=== PATIENT | female | born 1965 | race Caucasian/White ===

== ENCOUNTER 2016-03-14 12:04 | Observation (INO) ==
[2016-03-14] MEDS ORDERED: *HR* Enoxaparin 100 MG/ML SYRINGE SQ STA (13:29)
--- NOTE | 2016-03-14 13:33 | Emergency Department Note ---
Disposition Clinical Impression: DVT (deep venous thrombosis) Qualifiers: DVT location: lower extremity Affected thrombotic vein of extremity: popliteal Laterality: right Chronicity: acute Qualified Code(s): I82.431 - Acute embolism and thrombosis of right popliteal vein Gout Qualifiers: Gout site: ankle Gout etiology: idiopathic Laterality: right Chronicity: acute Qualified Code(s): M10.071 - Idiopathic gout, right ankle and foot Disposition: Admitted As Inpatient Time of Disposition: 13:25 General Adult HPI - General Chief complaint: ED Extremity Problem,Nontraumatic Stated complaint: positive blood clot behind right knee Time Seen by Provider: 03/14/16 13:10 Source: patient Mode of arrival: private vehicle Limitations: no limitations Nursing Notes Reviewed: Yes Vital Signs Reviewed: Yes - History of Present Illness HPI Narrative: This 50-year-old female who presents with several days of right ankle pain. Hurts very much to move ankle. She says she has had episode old was diagnosed as gout about a year ago. She simply simply treated the symptoms and waited for her to get better since she cannot take nonsteroidals or prednisone. She was seen her yesterday and found elevated have an elevated d-dimer and a Doppler today shows a right popliteal vein thrombus which is felt to be acute. Location the problem is the right ankle pain along with the probably unrelated right popliteal DVT. Duration: The ankle pain is been on for about 3 days. Timing: [place] prior history of low was felt to be gout about a year ago Severity: The pain and ankles quite significant significantly hampering her ability to get around Call the colon is sharp pain Associated signs and symptoms: The patient denies any lightheadedness, chest pain, shortness of breath, calf pain. Context: She does not have cancer. She has not had recent surgery. She never had a blood clot. She is not on hormone replacement. Modifying factors: Move his ankle makes it worse. Pain Scale: 10 - Related Data Home Medications Medication Instructions Recorded Confirmed Alprazolam [Xanax] 0.5 mg PO Q6HR PRN 10/04/14 03/14/16 Famotidine [Pepcid] 20 mg PO BID PRN 10/04/14 03/14/16 Hydrochlorothiazide 25 mg PO DAILY 10/04/14 03/14/16 Hydrocodone/Acetaminophen [[place] 1 each PO Q6HR PRN 10/04/14 03/14/16 5-325 Tablet] Metoprolol [Lopressor] 100 mg PO BID 10/04/14 03/14/16 Levothyroxine [Synthroid] 112 mcg PO DAILY 03/14/16 03/14/16 Previous Rx's Medication Instructions Recorded Colchicine [Colcrys] 1.2 mg PO NOW #10 tablet 10/04/14 Allergies Allergy/AdvReac Type Severity Reaction Status Date / Time aspirin Allergy Swelling Verified 10/04/14 18:33 of Lip/Tongue/Throat ibuprofen Allergy Swelling Verified 10/04/14 18:33 of Lip/Tongue/Throat NSAIDS (Non-Steroidal Allergy Rash Verified 10/04/14 18:33 Anti-Inflamma prednisone Allergy Swelling Verified 10/04/14 18:33 of Lip/Tongue/Throat Sulfa (Sulfonamide Allergy Hives Verified 03/14/16 12:06 Antibiotics) ketorolac [From Toradol] AdvReac Nausea Verified 10/04/14 18:33 tramadol [From Ultram] AdvReac Nausea Verified 10/04/14 18:33 Constitutional: Denies: fever Eyes: Denies: vision change ENT ED: Denies: throat pain, congestion Cardiovascular: Denies: chest pain, syncope Respiratory: Denies: dyspnea Gastrointestinal: Reports: abdominal pain (She has some ongoing issues with right-sided abdominal pain which are not new) Genitourinary: Denies: dysuria Musculoskeletal: Reports: other (She has pain in the right ankle but not in the right calf. There is no swelling in the right calf). Denies: back pain Integumentary: Denies: rash Neurological: Denies: numbness Psychiatric: Denies: depression Past Medical History - Past Medical History Source: patient Medical history: Reports: arthritis, asthma, CHF, COPD, diabetes, fibromyalgia, hypertension, thyroid disease, other Surgical history: Reports: Psychiatric history: Reports: anxiety [employer] history: Reports: bilateral tubal ligation, other - Social History Smoking Status: Former smoker Smokeless Tobacco Status: No Alcohol use: Reports: none Drug use: Reports: none Physical Exam - General Limitations: no limitations General appearance: alert - Head Head exam: atraumatic, normocephalic - Eye Eye exam: Absent: conjunctival injection - ENT ENT exam: normal oropharynx - Neck Neck exam: Absent: tenderness, meningismus - Chest Chest inspection: Present: normal inspection - Respiratory Respiratory exam: Present: normal lung sounds bilaterally - Cardiovascular Cardiovascular exam: Present: regular rate, normal rhythm, normal heart sounds - Abdominal Exam Abdominal exam: Present: tenderness (Mild right-sided abdominal tenderness) - Extremities Exam Extremities exam: Present: other (She has quite significant tenderness of the right ankle without erythema or obvious swelling and no warmth. She has absolutely no tenderness over the right calf or thigh area. She has significant pain with any range of motion of the right ankle.) - Back Exam Back exam: Absent: CVA tenderness (R), CVA tenderness (L) - Neurological Exam Neurological exam: Present: oriented X3. Absent: motor sensory deficit - Skin Skin exam: Absent: rash, erythema Course - Reevaluation(s) Reevaluation #1: I did review her chart from yesterday. She does have uric acid of 8 within normal range of 2.66. White count was 5.6. Chemistries are normal. TSH was mildly elevated at 8.17. D-dimer was elevated at 724. The venous Doppler done today is read as showing an acute occlusive thrombus in the right popliteal area. Time: 13:35 Reevaluation #2: Earlier I did discuss the patient with Dr. Rhodes did agree to admit the patient is a hospital here Time: 14:06 Vital Signs Temperature 98.7 F 03/14/16 12:08 Pulse Rate 64 03/14/16 12:08 Respiratory Rate 18 03/14/16 12:08 Blood Pressure 129/57 03/14/16 12:08 O2 Sat by Pulse Oximetry 95 03/14/16 12:08 Temperature 98.7 F 03/14/16 12:10 Pulse Rate 64 03/14/16 13:33 Respiratory Rate 18 03/14/16 13:33 Blood Pressure 130/79 03/14/16 13:33 O2 Sat by Pulse Oximetry 93 L 03/14/16 13:33 Oxygen Delivery Oxygen Delivery Room Air Medical Decision Making - [facility] Narrative Medical decision making narrative: This is a patient with her and basically asymptomatic DVT in her right lower extremity. The pain in her right ankle which is probably unrelated to the DVT is making it difficult for her to be adequately treated at home. She will be admitted for treatment for the DVT. Depending on what happens with her ankle pain she may become a placement issue - Medical Records Medical records reviewed: Yes I reviewed the patient's medical records. See the history of present illness - Core Measures AMI Core Measures Followed: No Measure Exclusions: not indicated Critical Care Time Critical Care Time: No
[2016-03-14] MEDS ORDERED: Naloxone 0.4 MG/ML INJ IVP PRN (14:11)
[2016-03-14] MEDS ORDERED: *HR* OxyCODONE Immed Rel 5 MG TABLET PO PRN (14:11)
[2016-03-14] MEDS ORDERED: Famotidine 20 MG TABLET PO PRN (14:16)
[2016-03-14] MEDS: *HR* HYDROcodone/Acet 5/325 mg TABLET PO PRN ×2 (16:04→20:12)
--- NOTE | 2016-03-14 17:11 | Internal Med History&Physical ---
Date of Encounter: 03/14/16 Time of Encounter: 16:35 Assessment and Plan (1) DVT (deep venous thrombosis) Current visit: Yes Status: Acute I will start her on Xarelto 15 mg twice a day. Qualifiers: DVT location: lower extremity Affected thrombotic vein of extremity: popliteal Laterality: right Chronicity: acute Qualified Code(s): I82.431 - Acute embolism and thrombosis of right popliteal vein (2) Gout Current visit: Yes Status: Acute I will order prednisone since she has taken it several times in the past without allergic reaction. I will give her colchicine and start IV fluids and withhold HCTZ. Qualifiers: Gout site: ankle Gout etiology: idiopathic Laterality: right Chronicity : acute Qualified Code(s): M10.071 - Idiopathic gout, right ankle and foot (3) Hypertension Current visit: Yes Status: Chronic Will hold HCTZ but continue metoprolol. Will monitor blood pressure and prescribe additional medication as needed. Qualifiers: Hypertension type: essential hypertension Qualified Code(s): I10 - Essential (primary) hypertension (4) Hypothyroidism Current visit: Yes Status: Chronic We will check TSH in a.m. Qualifiers: Hypothyroidism type: unspecified Qualified Code(s): E03.9 - Hypothyroidism , unspecified Internal Medicine - H&P: HPI Chief complaint: Right leg pain Admitted From: Home Plans for Post Hospital Care: Home History of present illness: Ms. Jackson is a 50 year old female who came to emergency room the evening of March 13 complaining of right ankle pain onset 2 days previously. Workup showed elevated uric acid at 8.0 and elevated d-dimer at 724. She was offered but declined specific treatment for the elevated d-dimer but agreed to return to the hospital today for a venous Doppler study. She was found to have acute right popliteal vein DVT on the ultrasound today. She was admitted to [facility] for ongoing care needs. She states when the pain developed on March 11 in her right ankle she further decreased her already minimal mobility. She denies previous DVT or pulmonary embolus. She did have a single previous episode of gout approximately 9-12 months ago in her right first toe MTP joint but does not recall the specific treatment given. She was not placed on any maintenance therapy for gout. She states she has taken prednisone several times in the past for asthma without any adverse drug reaction but thinks she had an allergic reaction following a steroid injection in her knee several months ago. 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 She also has fibromyalgia. Past Med Surg Social Fam HX - Past Medical History Medical history: arthritis, asthma, CHF, COPD, diabetes, fibromyalgia, hypertension, thyroid disease, other Psychiatric history: anxiety - Past Surgical History Surgical History: - Social History Smoking Status: Former smoker Smokeless Tobacco Status: No Alcohol use: none Drug use: none - Family History Mother History Unknown: Yes Adopted: No Family Member Ethnicity: Non- Living Status: Still Living Hx Family Cardiac Disorders: Yes Hx Family Respiratory Disorders: Yes Hx Family Cancer: Yes (breast uterine) Hx Family GI Disorders: No Hx Family Genitourinary Disorders: No Hx Family Endocrine Disorder: Yes (DM) Hx Family Musculoskeletal Disorders: No Hx Family Neuromuscular Disorders: No Hx Family Neurologic Disorders: No Hx Family HEENT Disorders: No Hx Family Autoimmune Disorders: No Hx Family Reproductive Disorders: No Hx Family Psychosocial Disorders: No Hx Family Medical Disorders: No Internal Medicine - H&P: Meds Alprazolam [Xanax] 0.5 mg PO Q6HR PRN 10/04/14 [History] Colchicine [Colcrys] 1.2 mg PO NOW #10 tablet 10/04/14 [Rx] Famotidine [Pepcid] 20 mg PO BID PRN 10/04/14 [History] Hydrochlorothiazide 25 mg PO DAILY 10/04/14 [History] Hydrocodone/Acetaminophen [[place] 5-325 Tablet] 1 each PO Q6HR PRN 10/04/14 [ History] Metoprolol [Lopressor] 100 mg PO BID 10/04/14 [History] Levothyroxine [Synthroid] 112 mcg PO DAILY 03/14/16 [History] Allergies aspirin Allergy (Verified 10/04/14 18:33) Swelling of Lip/Tongue/Throat ibuprofen Allergy (Verified 10/04/14 18:33) Swelling of Lip/Tongue/Throat NSAIDS (Non-Steroidal Anti-Inflamma Allergy (Verified 10/04/14 18:33) Rash prednisone Allergy (Verified 10/04/14 18:33) Swelling of Lip/Tongue/Throat Sulfa (Sulfonamide Antibiotics) Allergy (Verified 03/14/16 12:06) Hives ketorolac [From Toradol] Adverse Reaction (Verified 10/04/14 18:33) Nausea tramadol [From Ultram] Adverse Reaction (Verified 10/04/14 18:33) Nausea All Systems PM: A 10-system review of systems was performed and is negative for pertinent findings except as documented above in the HPI. Review of systems: Gen.: She states her weight has been stable the past few months Cardiovascular: She has history of hypertension but denies [place] heart failure angina or previous DVT or pulmonary embolus Respiratory: She smoked from age [age] a total of 17 years never up to 1 pack per day. She has a diagnosis of asthma but denies other chronic lung disease. GI: She has a dysfunctional gallbladder but has not had cholecystectomy. She denies disorders of her liver or exocrine pancreas : She denies hematuria dysuria or kidney stones Neurologic: She denies large distribution strokes or seizures Endocrine: She has hypothyroidism but denies diabetes or hyperlipidemia Hematology/oncology: She denies blood disorders cancers or anemia Psychiatric: She has anxiety but denies depression or other mental health issues Musculoskeletal: As per history of present illness - Constitutional Vitals: Temp Pulse Resp BP Pulse Ox 97.7 F 71 18 127/62 96 03/14/16 14:36 03/14/16 14:36 03/14/16 14:36 03/14/16 14:36 03/14/16 14:36 Exam: Gen.: She is well-developed morbidly obese female lying in bed who appears in minimal distress until movement of the right ankle occurs HEENT: Head is atraumatic and normocephalic. Eyes: EOMI. There is no scleral icterus. Mouth: Mucosa is moist. Neck: Supple and nontender. There is no thyromegaly or adenopathy noted. Heart: Regular without murmurs gallops or ectopics. Lungs: No wheezes or crackles are heard. Abdomen: Soft and nontender. No masses or guarding are noted. Extremities: There is no cyanosis edema or clubbing noted. Dorsalis pedis and posterior tibial pulses are 1-2 over 2 bilaterally. She has significant pain on passive or active range of motion of the right ankle. There is no significant difference in warmth or appearance between the left and right ankle. She has no pain on movement of the right MTP joints Neurologic: Mental status: She is talkative and a good historian. Cranial nerves: Smile is symmetric. Forehead wrinkles bilaterally. Tongue protrudes midline. EOMI. Motor: There is no pronator drift. Cerebellar: Finger to nose is intact bilaterally. Skin: Warm and dry
[2016-03-14] MEDS ORDERED: Colchicine 0.6 MG TABLET PO ONE (17:30)
[2016-03-14] MEDS ORDERED: 0.45 % Sodium Chloride w/KCl 20 MEQ/1,000 ML MLS IVC SCH (17:30)
[2016-03-14] MEDS: PredniSONE 20 MG TABLET PO SCH ×3 (18:07→20:13)
[2016-03-14] MEDS: *HR* Rivaroxaban 15 MG TABLET PO SCH (20:12)
[2016-03-15] MEDS: *HR* HYDROcodone/Acet 5/325 mg TABLET PO PRN ×6 (00:20→21:31)
[2016-03-15] MEDS: *HR* Rivaroxaban 15 MG TABLET PO SCH ×2 (09:38→21:31)
[2016-03-15] MEDS: PredniSONE 20 MG TABLET PO SCH (09:40)
--- NOTE | 2016-03-15 10:38 | Internal Med Progress Note ---
Date of Encounter: 03/15/16 Time of Encounter: 10:30 - Assessment and plan (1) DVT (deep venous thrombosis) Current Visit: Yes Status: Acute Assessment and plan: March 15. Continue Xarelto Qualifiers: DVT location: lower extremity Affected thrombotic vein of extremity: popliteal Laterality: right Chronicity: acute Qualified Code(s): I82.431 - Acute embolism and thrombosis of right popliteal vein (2) Gout Current Visit: Yes Status: Acute Assessment and plan: March 15. I will give additional colchicine and start allopurinol. Qualifiers: Gout site: ankle Gout etiology: idiopathic Laterality: right Chronicity : acute Qualified Code(s): M10.071 - Idiopathic gout, right ankle and foot (3) Hypertension Current Visit: Yes Status: Chronic Assessment and plan: March 15. Remain off HCTZ but continue metoprolol. Her blood pressures are well controlled. Qualifiers: Hypertension type: essential hypertension Qualified Code(s): I10 - Essential (primary) hypertension (4) Hypothyroidism Current Visit: Yes Status: Chronic Assessment and plan: March 15. TSH was normal at 4.809. Continue present dose Synthroid Qualifiers: Hypothyroidism type: unspecified Qualified Code(s): E03.9 - Hypothyroidism , unspecified - Subjective Interval history: March 15. She has no new complaints. She states the pain in her right foot has decreased slightly. She refused to take prednisone after her sister reminded her she had an "allergic" reaction to previous doses of it. Multiple attempts to gain IV access were unsuccessful and she declined further attempts. She is drinking more fluids orally. - Constitutional Vitals: Temp Pulse Resp BP Pulse Ox 97.4 F L 66 18 129/68 94 L 03/15/16 07:16 03/15/16 07:16 03/15/16 07:16 03/15/16 07:16 03/15/16 07:16 Exam: The right foot shows no significant erythema. She has pain still present on right ankle movement but slightly decreased from yesterday's evaluation. She has no pain on movement of her right toes. I reviewed her medications and lab results. Consult Discharge Plan - Plan Referrals: Colette Davidson [Primary Care Provider] - 1 week
[2016-03-15] MEDS: Colchicine 0.6 MG TABLET PO SCH ×2 (12:44→21:31)
[2016-03-16] MEDS: *HR* HYDROcodone/Acet 5/325 mg TABLET PO PRN ×4 (01:40→13:47)
[2016-03-16 06:32] VITALS: BP 113/62
--- NOTE | 2016-03-16 09:31 | Discharge Summary ---
Date of Encounter: 03/16/16 Time of Encounter: 09:15 - Discharge Diagnosis (1) DVT (deep venous thrombosis) Priority: Primary Status: Acute Qualifiers: DVT location: lower extremity Affected thrombotic vein of extremity: popliteal Laterality: right Chronicity: acute Qualified Code(s): I82.431 - Acute embolism and thrombosis of right popliteal vein (2) Gout Priority: Secondary Status: Chronic Qualifiers: Gout site: ankle Gout etiology: idiopathic Laterality: right Chronicity : acute Qualified Code(s): M10.071 - Idiopathic gout, right ankle and foot (3) Hypertension Priority: Secondary Status: Chronic Qualifiers: Hypertension type: essential hypertension Qualified Code(s): I10 - Essential (primary) hypertension (4) Hypothyroidism Priority: Secondary Status: Chronic Qualifiers: Hypothyroidism type: unspecified Qualified Code(s): E03.9 - Hypothyroidism , unspecified - Discharge Medications Prescriptions: HYDROcodone/Acet 5/325 mg [[place] 5-325 mg] 1 tab PO Q4HR PRN #40 tablet PRN Reason: Pain Allopurinol [Zyloprim 100 MG] 200 mg PO DAILY #60 tablet Colchicine [Colcrys] 0.6 mg PO BID #6 tablet Rivaroxaban [Xarelto] 15 mg PO BID #40 tablet Home Medications: Alprazolam [Xanax] 0.5 mg PO Q6HR PRN 10/04/14 [History] Colchicine [Colc[place]] 1.2 mg PO NOW #10 tablet 10/04/14 [Rx] Famotidine [Pepcid] 20 mg PO BID PRN 10/04/14 [History] Hydrocodone/Acetaminophen [[place] 5-325 Tablet] 1 each PO Q6HR PRN 10/04/14 [ History] Metoprolol [Lopressor] 100 mg PO BID 10/04/14 [History] Levothyroxine [Synthroid] 112 mcg PO DAILY 03/14/16 [History] Allopurinol [Zyloprim 100 MG] 200 mg PO DAILY #60 tablet 03/16/16 [Rx] Colchicine [Colcrys] 0.6 mg PO BID #6 tablet 03/16/16 [Rx] HYDROcodone/Acet 5/325 mg [[place] 5-325 mg] 1 tab PO Q4HR PRN #40 tablet [Rx] Rivaroxaban [Xarelto] 15 mg PO BID #40 tablet 03/16/16 [Rx] Allergies/Adverse Reactions: Allergies aspirin Allergy (Verified 10/04/14 18:33) Swelling of Lip/Tongue/Throat ibuprofen Allergy (Verified 10/04/14 18:33) Swelling of Lip/Tongue/Throat NSAIDS (Non-Steroidal Anti-Inflamma Allergy (Verified 10/04/14 18:33) Rash prednisone Allergy (Verified 10/04/14 18:33) Swelling of Lip/Tongue/Throat Sulfa (Sulfonamide Antibiotics) Allergy (Verified 03/14/16 12:06) Hives ketorolac [From Toradol] Adverse Reaction (Verified 10/04/14 18:33) Nausea tramadol [From Ultram] Adverse Reaction (Verified 10/04/14 18:33) Nausea Date of admission: 03/14/16 13:39 Primary care physician: Colette Davidson - Patient Status Disposition: Home, Self-Care Overall status at discharge: patient is progressing back to baseline - Discharge Instructions Follow Up With: Colette Davidson [Primary Care Provider] - 1 week Additional Instructions: May go home by ambulance - Diet and Activity Activity: resume usual activities as tolerated Diet: advance to your usual diet Hospital course: Ms. Jackosn is a 50 year old female who came to emergency room the evening of March 13 complaining of right ankle pain onset 2 days previously. Workup showed elevated uric acid at 8.0 and elevated d-dimer at 724. She was offered but declined specific treatment for the elevated d-dimer but agreed to return to the hospital today for a venous Doppler study. She was found to have acute right popliteal vein DVT on the ultrasound today. She was admitted to [facility] for ongoing care needs. Initial orders were written by the emergency room physician. I saw her on March 14 and performed a history and physical. She was given Lovenox by the emergency room physician. I started her on Xarelto 15 mg twice a day for the DVT. I ordered hypercoagulable workup including factor V Leiden, lupus anticoagulant, prothrombin G 2210A mutation, protein C, and protein S. All these results are pending at the time of discharge. She reported she could not take NSAID or prednisone because of previous allergic reactions including hives. She was given colchicine and the HCTZ was discontinued. IV fluids were ordered but peripheral IV access could not be successfully obtained. After a few unsuccessful attempts she refused to continue allowing placement attempts. I started her on allopurinol 200 mg daily which was tolerated well. The Morning of March 16 She Reported She Had Some Vaginal Bleeding. She Was Concerned Because Her Mother Had History of Uterine Cancer. I Encouraged Her to Follow-Up in One Week at Her PCP Office to Discuss Further Evaluation of This. She clinically improved with decreased pain in the right ankle. She still had some pain at time of discharge but I told her to use additional [place] until the pain improved. She will follow with her primary care provider Colette Davidson CNP within 1 week. I encouraged her to initiate a weight loss program. - Time Spent with Patient Total time spent providing and/or coordinating discharge services: - Constitutional Vitals: Temp Pulse Resp BP Pulse Ox 97.3 F L 67 18 113/62 95 03/16/16 06:26 03/16/16 06:26 03/16/16 06:26 03/16/16 06:26 03/16/16 06:26
[2016-03-16] MEDS: *HR* Rivaroxaban 15 MG TABLET PO SCH (10:18)
[2016-03-16] MEDS: Colchicine 0.6 MG TABLET PO SCH (10:19)
[2016-03-17 21:31] LABS: APTT (LE Anticoag) 55 sec (32-48); Diluted Russell Viper Venom 66 sec (33-44); LE Coag APTT Mixing 50 sec (32-48); LE Dil. Russell Viper Mix 1:1 56 sec (33-44); LE Hexagonal Phospholipid Neut POSITIVE (Negative); PT (LE-Anticoag) 17.8 sec (12.0-15.5); Thrombin Time 17.4 sec (14.7-19.5)
[2016-03-19 07:34] LABS: Protein S Antigen, Total 108 % (63-126)
[2016-03-19 07:35] LABS: Protein C, Functional 194 % (83-168); Protein S, Functional 135 % (57-131)
[2016-03-19 11:34] LABS: Factor V Leiden Normal (Normal); Prothrombin G20210A Mutation Normal (Normal)
== END 2016-03-16 16:12 | disposition home or self-care (01) ==
LOC: INPPIK 12:04 → EMEROOPIK 12:04 → INPPIK 14:11
PROVIDERS: ADMIT Internal Medicine; ATTEND Internal Medicine

== ENCOUNTER 2021-05-29 20:44 | Observation (INO) ==
[2021-05-29] MEDS ORDERED: cefTRIAXone 2,000 MG in 0.9 % Sodium Chloride Mini Bag 100 ML IVPB ONE (20:55)
[2021-05-29] MEDS ORDERED: 0.9 % Sodium Chloride 1,000 ML IVC SCH (21:00)
[2021-05-29 21:27] LABS: Basophils % 0.4 %; Eosinophils # 0.1 K/mcL (0.0-0.6); Eosinophils % 1.4 %; Hematocrit 45.7 % (35.3-44.9); Hemoglobin 13.8 g/dL (11.5-15.4); Immature Granulocytes % 0.2 % (0-4); Mean Corpuscular HGB Conc 30.2 g/dL (31.6-35.5); Mean Corpuscular Hemoglobin 26.4 pg (28.0-33.3); Mean Corpuscular Volume 87.5 fL (83.0-100.0); Mean Platelet Volume 10.4 fL (9.4-12.4); Monocytes # 0.3 K/mcL (0.0-1.3); Monocytes % 5.5 %; Neutrophils # 4.2 K/mcL (1.6-8.9); Platelet Count 186 K/mcL (140-400); Red Blood Count 5.22 M/mcL (3.82-4.97); Red Cell Distribution Width 13.9 % (11.5-14.5); Segmented Neutrophils % 75.5 %; White Blood Count 5.6 K/mcL (4.3-11.1)
[2021-05-29 21:46] LABS: Alanine Aminotransferase 15 Units/L (7-52); Albumin 3.7 g/dL (3.5-5.7); Albumin/Globulin Ratio 0.9 (1.1-2.2); Alkaline Phosphatase 60 Units/L (34-104); Aspartate Amino Transferase 20 Units/L (13-39); BUN/Creatinine Ratio 17 (6-26); Bilirubin,Indirect 0.3 mg/dL (0.0-1.0); Bilirubin,Total 0.3 mg/dL (0.3-1.0); Blood Urea Nitrogen 11 mg/dL (6-20); Calcium 9.2 mg/dL (8.6-10.3); Carbon Dioxide 38 mEq/L (23-29); Chloride 95 mEq/L (98-107); Globulin 4.2 g/dL (2.4-3.5); Glucose 107 mg/dL (70-105); Osmolality,Calculated 286 (280-300); Potassium 3.8 mEq/L (3.5-5.1); Sodium 138 mEq/L (136-145); Total Protein 7.9 g/dL (6.4-8.9); eGFR For African Americans > 60 (> 60); eGFR For Non-African Americans > 60 (> 60)
[2021-05-29 22:48] LABS: Bilirubin,Urine Negative (Negative); Blood,Urine Moderate (Negative); Glucose,Urine (UA) Normal (Normal); Ketones,Urine Negative (Negative); Leukocyte Esterase,Urine Trace (Negative); Nitrite,Urine Positive (Negative); PH,Urine 7.5 pH Units (5.0-8.0); Protein,Urine Negative (Neg-Trace); Urobilinogen,Urine Normal (Normal)
[2021-05-29 22:49] LABS: Clarity,Urine Hazy (Clear); Color,Urine Light Yellow (Yellow)
[2021-05-29 22:54] LABS: Bacteria,Urine Many per hpf (None-Few); Squamous Epithelial Cell,Urine Few per hpf (None-Few); WBC,Urine 0-3 per hpf (0-3)
[2021-05-30] MEDS ORDERED: ALPRAZolam 0.5 MG TABLET PO PRN (01:58)
[2021-05-30] MEDS ORDERED: Ondansetron ODT 4 MG TAB.RAPDIS SL PRN (01:58)
[2021-05-30] MEDS ORDERED: Mag Hydrox/Al Hydrox/Simeth 30 ML UDC PO PRN (01:58)
[2021-05-30] MEDS ORDERED: Naloxone 0.4 MG/ML INJ IVP PRN (01:58)
[2021-05-30] MEDS ORDERED: Melatonin 3 MG TABLET PO PRN (01:58)
[2021-05-30] MEDS: 0.9 % Sodium Chloride 1,000 ML IVC SCH ×3 (06:33→17:39)
[2021-05-30] MEDS: Gabapentin 300 MG CAPSULE PO SCH ×2 (09:17→20:13)
[2021-05-30] MEDS: Furosemide 40 MG TABLET PO SCH ×2 (09:17→20:13)
[2021-05-30] MEDS: Aspirin Enteric Coated 325 MG Tablet PO SCH (09:17)
[2021-05-30] MEDS: MOM Conc 10 ML UD.LIQ PO PRN (09:31)
[2021-05-30] MEDS: *HR* OxyCODONE Immed Rel 5 MG TABLET PO PRN ×2 (11:33→17:39)
[2021-05-30] MEDS ORDERED: cefTRIAXone 2,000 MG in 0.9 % Sodium Chloride Mini Bag 100 ML IVPB SCH (18:00)
[2021-05-31] MEDS: *HR* OxyCODONE Immed Rel 5 MG TABLET PO PRN ×4 (00:41→20:31)
[2021-05-31] MEDS: 0.9 % Sodium Chloride 1,000 ML IVC SCH (01:06)
[2021-05-31] MEDS: *HR* Enoxaparin 40 MG/0.4 ML SYRINGE SQ SCH (06:24)
[2021-05-31 07:41] LABS: Basophils % 0.2 %; Eosinophils # 0.1 K/mcL (0.0-0.6); Eosinophils % 2.4 %; Hematocrit 43.4 % (35.3-44.9); Hemoglobin 13.3 g/dL (11.5-15.4); Immature Granulocytes % 0.2 % (0-4); Lymphocytes # 1.3 K/mcL (0.6-4.6); Lymphocytes % 22.4 %; Mean Corpuscular HGB Conc 30.6 g/dL (31.6-35.5); Mean Platelet Volume 9.9 fL (9.4-12.4); Monocytes # 0.4 K/mcL (0.0-1.3); Monocytes % 7.3 %; Platelet Count 167 K/mcL (140-400); Red Blood Count 4.93 M/mcL (3.82-4.97); Red Cell Distribution Width 13.9 % (11.5-14.5); Segmented Neutrophils % 67.5 %; White Blood Count 5.9 K/mcL (4.3-11.1)
[2021-05-31 08:17] LABS: BUN/Creatinine Ratio 14 (6-26); Blood Urea Nitrogen 11 mg/dL (6-20); Carbon Dioxide 39 mEq/L (23-29); Chloride 98 mEq/L (98-107); Glucose 115 mg/dL (70-105); Osmolality,Calculated 292 (280-300); Potassium 3.7 mEq/L (3.5-5.1); Sodium 141 mEq/L (136-145); eGFR For African Americans > 60 (> 60); eGFR For Non-African Americans > 60 (> 60)
[2021-05-31] MEDS: Furosemide 40 MG TABLET PO SCH ×2 (09:21→20:16)
[2021-05-31] MEDS: Gabapentin 300 MG CAPSULE PO SCH ×2 (09:21→20:16)
[2021-05-31] MEDS: Aspirin Enteric Coated 325 MG Tablet PO SCH (09:22)
[2021-05-31] MEDS: MOM Conc 10 ML UD.LIQ PO PRN (09:22)
[2021-05-31] MEDS: Cefdinir 300 MG CAPSULE PO SCH (20:16)
[2021-06-01] MEDS: *HR* OxyCODONE Immed Rel 5 MG TABLET PO PRN ×4 (03:54→23:43)
[2021-06-01] MEDS: *HR* Enoxaparin 40 MG/0.4 ML SYRINGE SQ SCH (06:09)
[2021-06-01 07:55] LABS: Basophils % 0.5 %; Eosinophils # 0.2 K/mcL (0.0-0.6); Eosinophils % 3.4 %; Hematocrit 43.9 % (35.3-44.9); Hemoglobin 13.3 g/dL (11.5-15.4); Immature Granulocytes % 0.2 % (0-4); Lymphocytes # 1.4 K/mcL (0.6-4.6); Lymphocytes % 23.9 %; Mean Corpuscular HGB Conc 30.3 g/dL (31.6-35.5); Mean Corpuscular Hemoglobin 26.7 pg (28.0-33.3); Mean Corpuscular Volume 88.2 fL (83.0-100.0); Mean Platelet Volume 9.8 fL (9.4-12.4); Monocytes # 0.4 K/mcL (0.0-1.3); Monocytes % 7.3 %; Neutrophils # 3.8 K/mcL (1.6-8.9); Platelet Count 176 K/mcL (140-400); Red Blood Count 4.98 M/mcL (3.82-4.97); Red Cell Distribution Width 14.1 % (11.5-14.5); Segmented Neutrophils % 64.7 %; White Blood Count 5.9 K/mcL (4.3-11.1)
[2021-06-01 08:06] LABS: BUN/Creatinine Ratio 15 (6-26); Blood Urea Nitrogen 11 mg/dL (6-20); Calcium 9.1 mg/dL (8.6-10.3); Carbon Dioxide 39 mEq/L (23-29); Chloride 95 mEq/L (98-107); Glucose 107 mg/dL (70-105); Osmolality,Calculated 290 (280-300); Potassium 3.7 mEq/L (3.5-5.1); Sodium 140 mEq/L (136-145); eGFR For African Americans > 60 (> 60); eGFR For Non-African Americans > 60 (> 60)
[2021-06-01] MEDS: Furosemide 40 MG TABLET PO SCH ×2 (09:47→20:05)
[2021-06-01] MEDS: Aspirin Enteric Coated 325 MG Tablet PO SCH (09:47)
[2021-06-01] MEDS: Gabapentin 300 MG CAPSULE PO SCH ×2 (09:47→20:05)
[2021-06-01] MEDS: Cefdinir 300 MG CAPSULE PO SCH ×2 (09:47→20:05)
[2021-06-02 00:05] VITALS: PULSE 55
[2021-06-02] MEDS: *HR* Enoxaparin 40 MG/0.4 ML SYRINGE SQ SCH (06:32)
[2021-06-02] MEDS: *HR* OxyCODONE Immed Rel 5 MG TABLET PO PRN ×2 (06:36→14:38)
[2021-06-02 07:12] VITALS: BP 125/74; RESP 16; TEMP 97.8; O2SAT 94
[2021-06-02 07:16] LABS: Basophils % 0.3 %; Eosinophils # 0.2 K/mcL (0.0-0.6); Eosinophils % 2.7 %; Hematocrit 43.3 % (35.3-44.9); Immature Granulocytes % 0.3 % (0-4); Lymphocytes # 1.4 K/mcL (0.6-4.6); Lymphocytes % 22.3 %; Mean Corpuscular Hemoglobin 26.6 pg (28.0-33.3); Mean Corpuscular Volume 88.7 fL (83.0-100.0); Mean Platelet Volume 9.8 fL (9.4-12.4); Monocytes # 0.5 K/mcL (0.0-1.3); Monocytes % 7.9 %; Neutrophils # 4.2 K/mcL (1.6-8.9); Platelet Count 174 K/mcL (140-400); Red Blood Count 4.88 M/mcL (3.82-4.97); Red Cell Distribution Width 13.7 % (11.5-14.5); Segmented Neutrophils % 66.5 %; White Blood Count 6.3 K/mcL (4.3-11.1)
[2021-06-02 07:50] LABS: BUN/Creatinine Ratio 19 (6-26); Blood Urea Nitrogen 14 mg/dL (6-20); Carbon Dioxide 42 mEq/L (23-29); Chloride 95 mEq/L (98-107); Glucose 109 mg/dL (70-105); Osmolality,Calculated 293 (280-300); Potassium 3.7 mEq/L (3.5-5.1); Sodium 141 mEq/L (136-145); eGFR For African Americans > 60 (> 60); eGFR For Non-African Americans > 60 (> 60)
[2021-06-02] MEDS: Aspirin Enteric Coated 325 MG Tablet PO SCH (09:26)
[2021-06-02] MEDS: Furosemide 40 MG TABLET PO SCH (09:26)
[2021-06-02] MEDS: Gabapentin 300 MG CAPSULE PO SCH (09:26)
[2021-06-02] MEDS: Cefdinir 300 MG CAPSULE PO SCH (09:26)
== END 2021-06-02 18:30 | disposition home or self-care (01) ==
LOC: EMEROOPIK 20:44 → INPPIK 20:44
PROVIDERS: ADMIT Internal Medicine; ATTEND Internal Medicine